=== PATIENT | male | born 2000 ===

== ENCOUNTER 2022-11-01 08:24 | Outpatient (CLI) | payer OTHER | END 2022-11-01 08:41 | disposition home or self-care (01) | LOC: RAD 08:24 | PROVIDERS: ATTEND General Practice | DX: I44.0 Atrioventricular block, first degree (principal); I44.1 Atrioventricular block, second degree; R05.8 Other specified cough; J32.9 Chronic sinusitis, unspecified ==

== ENCOUNTER → 2022-11-23 | Outpatient (CLI) | payer OTHER | END | disposition home or self-care (01) | LOC: SONOGRAMA 06:52 | PROVIDERS: ATTEND General Practice | DX: R10.9 Unspecified abdominal pain (principal); R74.8 Abnormal levels of other serum enzymes ==

== ENCOUNTER 2025-01-08 07:04 | Outpatient (CLI) | payer OTHER | END 2025-01-08 07:06 | disposition home or self-care (01) | LOC: RAD 07:04 | PROVIDERS: ATTEND General Practice | DX: R10.9 Unspecified abdominal pain (principal); E66.9 Obesity, unspecified; R05.9 Cough, unspecified; R06.02 Shortness of breath ==

== ENCOUNTER → 2025-01-08 08:01 | Outpatient (CLI) | payer OTHER ==
[2025-01-08 09:00] LABS: HEMATOCRIT 42.9 % (39.0-48.0); HEMOGLOBIN 14.4 g/dL (13-16.00); MEAN CELL VOLUME 84.3 fL (80.0-100.00); MEAN CORPUSCULAR HEMOGLOBIN 28.4 pg (27.00-32.0); MEAN CORPUSCULAR HGB CONC 33.6 g/dl (32.0-36.0); PLATELET COUNT 185 K/uL (150-450); RED BLOOD COUNT 5.09 M/uL (4.00-6.00); RED CELL DISTRIBUTION WIDTH 14.7 % (11.5-14.5)
[2025-01-08 09:42] LABS: ALBUMIN 4.1 gm/dL (3.4-5.0); BILIRUBIN TOTAL 0.49 mg/dL (0.3-1.2); CALCIUM 9.6 mg/dL (8.5-10.1); CHOL HDL RATIO 2.6 (0-5.0); CREATININE SERUM 0.86 mg/dL (0.70-1.30); GFR 110.2; GLOBULINA 3.3 G/DL (2.4-3.5); POTASSIUM 4.67 mEq/L (3.5-5.1); T4 FREE 0.95 NG/ML (0.76-1.46); TOTAL PROTEIN 7.4 gm/dL (6.4-8.2); TSH 1.17 uIU/mL (0.358-3.74); URINE APPEARANCE Clear; URINE BILIRRUBIN Negative (NEGATIVE); URINE BLOOD Negative; URINE COLOR Yellow; URINE GLUCOSE Negative (NEGATIVE); URINE KETONE Negative (NEGATIVE); URINE LEUKOCYTE Negative; URINE NITRATE Negative; URINE PROTEIN Negative (NEGATIVE)
[2025-01-08 09:49] LABS: URINE WBC 2.3 uL (0.0-23.2)
[2025-01-08 09:57] LABS: URINE BACTERIA 3.6 uL (0.0-1933); URINE CAST 0.29 uL (0.0-1.40); URINE EPITHELIAL CELLS 0.4 uL (0.0-38.8); URINE RBC 0.7 uL (0.0-20.8)
[2025-01-09 11:11] LABS: hav igm Negative (Negative); hcv Non Reactive (Non Reactive); hep b c Negative (Negative); hep b s ag Negative (Negative)
[2025-01-09 21:06] LABS: chla t Negative (Negative); neiss Negative (Negative)
== END | disposition home or self-care (01) ==
LOC: LAB 08:01
PROVIDERS: ATTEND General Practice
DX: E66.9 Obesity, unspecified (principal); R09.81 Nasal congestion; R07.0 Pain in throat; Z13.1 Encounter for screening for diabetes mellitus; Z13.220 Encounter for screening for lipoid disorders; Z13.228 Encounter for screening for other metabolic disorders; Z11.3 Encounter for screening for infections with a predominantly sexual mode of transmission

== ENCOUNTER 2025-03-11 14:30 | Outpatient (CLI) | payer OTHER | END 2025-03-11 14:39 | disposition home or self-care (01) | LOC: MRI 14:30 | PROVIDERS: ATTEND General Practice | DX: M25.561 Pain in right knee (principal); Z71.9 Counseling, unspecified; E66.9 Obesity, unspecified | CPT/HCPCS: 73721 ==

== ENCOUNTER 2025-07-26 07:08 | Outpatient (CLI) | payer OTHER | END 2025-07-26 07:11 | disposition home or self-care (01) | LOC: SONOGRAMA 07:08 | PROVIDERS: ATTEND General Practice | DX: R63.4 Abnormal weight loss (principal); R53.1 Weakness; R10.9 Unspecified abdominal pain; E07.9 Disorder of thyroid, unspecified ==

== ENCOUNTER 2025-08-17 12:06 | Outpatient (CLI) | payer OTHER | END 2025-08-17 12:22 | disposition home or self-care (01) | LOC: RAD 12:06 | PROVIDERS: ATTEND Orthopaedic Surgery | DX: M25.561 Pain in right knee (principal) ==